=== PATIENT | female | born 1945 | race Caucasian/White ===

== ENCOUNTER 2020-07-14 14:54 | Outpatient (REF) | payer MEDICARE, SELFPAY ==
[2020-07-14 16:21] LABS: Alanine Aminotransferase 19 U/L (0-31); Albumin Level 4.2 g/dL (3.5-5.0); Alkaline Phosphatase 161 U/L (39-117); Aspartate Amino Transferase 23 U/L (5-31); Bilirubin Direct 0.2 mg/dL (0.0-0.5); Bilirubin Total 0.5 mg/dL (0.0-1.0); Total Protein 7.3 g/dL (6.5-8.0)
== END 2020-07-14 14:55 | disposition home or self-care (01) ==
LOC: HO.LAB 14:54
PROVIDERS: Visit Provider Internal Medicine Gastroenterology
DX: R79.89 Other specified abnormal findings of blood chemistry (principal)
CPT/HCPCS: 80076

== ENCOUNTER 2020-09-03 13:26 | Outpatient (REF) | payer MEDICARE, SELFPAY ==
--- NOTE | 2020-09-03 13:34 | XR_ITS ---
EXAMINATION: XR CHEST CLINICAL INFORMATION: Chest pain COMPARISON: Chest radiographs 07/16/2019, 12/02/2016 TECHNIQUE: 2 views of the chest were obtained. FINDINGS: There is prior median sternotomy with mediastinal clips and sternotomy wires. Bipolar pacemaker is present with atrial and ventricular leads. The heart is normal in size. The vascularity is normal. The lungs are clear. There is no pneumothorax, airspace consolidation, groundglass opacity, or effusion. The hilar and mediastinal contours are unremarkable. There are degenerative changes thoracic spine. No visible acute bony abnormality. XR/XR chest 2V IMPRESSION: Unremarkable examination.
== END 2020-09-03 13:27 | disposition home or self-care (01) ==
LOC: HO.XRAY 13:26
PROVIDERS: Visit Provider Internal Medicine
DX: R07.89 Other chest pain (principal)
CPT/HCPCS: 71046

== ENCOUNTER 2020-10-30 10:20 | Outpatient (REF) | payer MEDICARE, SELFPAY ==
--- NOTE | ~2020-10-30 | US_ITS ---
EXAMINATION: US ABDOMEN COMPLETE CLINICAL INFORMATION: Elevated LFTs. COMPARISON: Ultrasound abdomen complete 12/18/2018 and 11/24/2017. TECHNIQUE: Real-time imaging of the abdominal viscera. FINDINGS: PANCREAS: Normal. ABDOMINAL AORTA: There is evidence of atherosclerotic disease. The proximal, mid, and distal segments are normal in caliber. INFERIOR VENA CAVA: Visualized portions are normal. LIVER: The liver is normal in size. The liver contour is normal. Parenchymal echogenicity is normal. No focal hepatic lesion. There is mild intrahepatic biliary duct dilatation. GALLBLADDER: Surgically absent. COMMON BILE DUCT: Slightly dilated measuring 0.8 cm in diameter. RIGHT KIDNEY: There is a 2.3 x 1.3 x 1.5 cm cyst in the upper pole. There is question of a 1.2 x 1.1 x 1.7 cm cyst in the midpole versus prominent pyramid. No hydronephrosis or renal calculi. The kidney measures 10.8 cm in maximum dimension. LEFT KIDNEY: There is a 0.8 x 0.4 x 0.8 cm cyst in the midpole. No hydronephrosis or renal calculi. The kidney measures 9.6 cm in maximum dimension. SPLEEN: Normal. The spleen measures 7.6 cm in maximum dimension. FREE FLUID: None. US/US abdomen complete IMPRESSION: Mild intra and extrahepatic biliary duct dilatation similar to previous exam. This can be a normal finding postcholecystectomy. Bilateral renal cysts. Atherosclerotic disease.
== END 2020-10-30 10:21 | disposition home or self-care (01) ==
LOC: HO.US 10:20
PROVIDERS: PCP Internal Medicine Gastroenterology; Visit Provider Internal Medicine Gastroenterology
DX: R94.5 Abnormal results of liver function studies (principal)
CPT/HCPCS: 76700

== ENCOUNTER 2021-01-21 16:50 | Outpatient (REF) | payer MEDICARE, SELFPAY ==
[2021-01-21 18:29] LABS: Alanine Aminotransferase 32 U/L (0-31); Albumin Level 4.1 g/dL (3.5-5.0); Alkaline Phosphatase 285 U/L (39-117); Aspartate Amino Transferase 29 U/L (5-31); Bilirubin Direct 0.2 mg/dL (0.0-0.5); Bilirubin Total 0.5 mg/dL (0.0-1.0); Total Protein 7.4 g/dL (6.5-8.0)
[2021-01-21 18:42] LABS: Gamma Glutamyl Transpeptidase 444 U/L (7-33)
== END 2021-01-21 16:51 | disposition home or self-care (01) ==
LOC: HO.LAB 16:50
PROVIDERS: Absent Provider Internal Medicine Gastroenterology; PCP Internal Medicine; Visit Provider Internal Medicine
DX: R94.5 Abnormal results of liver function studies (principal); R94.6 Abnormal results of thyroid function studies
CPT/HCPCS: 36415; 80076; 82977; 84439; 84443

== ENCOUNTER 2021-03-27 11:50 | Outpatient (REF) | payer MEDICARE, SELFPAY ==
--- NOTE | ~2021-03-27 | MM_ITS ---
EXAMINATION: MM SCREENING DIGITAL BREAST TOMOSYNTHESIS, BILATERAL CLINICAL INFORMATION: Screening. Asymptomatic. The lifetime risk of breast cancer based on the Tyrer-Cuzick Model is 2%. COMPARISON: Mammography: 03/10/2020, 6 03/05/2019, 09/22/2016 TECHNIQUE: Digital breast tomosynthesis is performed in both the craniocaudal and mediolateral oblique views along with computer-aided detection (CAD). Synthesized 2D images are generated from the tomosynthesis. Additional left MLO view is provided. FINDINGS: The breasts are heterogeneously dense, which may obscure small masses (ACR BI-RADS breast composition Category c). There is no developing density or interval mass or architectural abnormality. Some fine calcifications are again seen central and outer breasts, greater in number on right. Calcifications show no significant change since 2017. There is pacemaker generator partly overlying posterior upper left axilla. MM/MM tomosynthesis screening BI IMPRESSION: No significant changes from prior exams. ASSESSMENT: BI-RADS 2: Benign RECOMMENDATION: Routine annual mammography screening. This patient's information was entered into a reminder system with a target due date for their next mammogram.
== END 2021-03-27 11:51 | disposition home or self-care (01) ==
LOC: HO.MAMMO 11:50
PROVIDERS: PCP Internal Medicine; Visit Provider Internal Medicine
DX: Z12.31 Encounter for screening mammogram for malignant neoplasm of breast (principal)
CPT/HCPCS: 77063; 77067

== ENCOUNTER 2022-01-07 11:27 | Outpatient (REF) | payer MEDICARE, SELFPAY ==
--- NOTE | ~2022-01-07 | US_ITS ---
EXAMINATION: US ABDOMEN COMPLETE CLINICAL INFORMATION: Abnormal hepatic function tests. Abdominal bloating. COMPARISON: Ultrasound abdomen complete 10/30/2020 and 12/18/2018. TECHNIQUE: Real-time imaging of the abdominal viscera. FINDINGS: PANCREAS: Normal. ABDOMINAL AORTA: Normal in caliber. Atherosclerotic disease however is noted. INFERIOR VENA CAVA: Visualized portions are normal. LIVER: Normal. The liver is normal in size. The liver contour is normal. Parenchymal echogenicity is normal. No focal hepatic lesion. There is no intrahepatic biliary duct dilatation seen. GALLBLADDER: Surgically absent. COMMON BILE DUCT: Dilated in caliber measuring 1.4 cm in diameter. No evidence of any choledocholithiasis. Increased in size by 0.6 cm since the prior study dated 10/30/2020. RIGHT KIDNEY: Septated, complicated cyst is noted at the mid pole, measures 1.4 x 1.4 x 1.3 cm, appears similar to prior study. No hydronephrosis or renal calculi. The kidney measures 11.4 cm in maximum dimension. LEFT KIDNEY: 0.8 x 0.7 x 0.8 cm unilocular simple appearing cyst is noted at the lateral cortex near the mid pole, unchanged No hydronephrosis or renal calculi. The kidney measures 11.2 cm in maximum dimension. SPLEEN: Normal. The spleen measures 9.0 cm in maximum dimension. FREE FLUID: None. US/US abdomen complete IMPRESSION: 1. The common bile duct is dilated, measures 1.4 cm without evidence of any choledocholithiasis, indeterminate etiology, shows interval increase in size by 0.6 cm since the most recent prior study dated 10/30/2020. No evidence of any intrahepatic biliary ductal dilatation present. The gallbladder is surgically absent. Follow-up MRCP may be considered for further clarification, if clinically appropriate.
== END 2022-01-07 11:28 | disposition home or self-care (01) ==
LOC: HO.HMGCX 11:27
PROVIDERS: PCP Internal Medicine; Visit Provider Internal Medicine
DX: R94.5 Abnormal results of liver function studies (principal); R14.0 Abdominal distension (gaseous)
CPT/HCPCS: 76700

== ENCOUNTER 2022-05-22 09:36 | Outpatient (REF) | payer MEDICARE, SELFPAY ==
[2022-05-22 09:56] LABS: MANUAL DIFF FLAG NO
[2022-05-22 10:25] LABS: Basophils Percent Auto 0.5 % (0-2); Eosinophils Absolute Auto 0.3 X10*3/uL (0.0-0.4); Eosinophils Percent Auto 4.9 % (0-4); Hematocrit 38.3 % (37.0-47.0); Hemoglobin 12.2 g/dl (12.0-16.0); Imm Gran Abs Auto 0.01 X10*3/uL (0.00-0.03); Imm Gran Pct Auto 0.2 % (0.0-0.4); Lymphocytes Absolute Auto 1.7 X10*3/uL (1.2-4.9); Lymphocytes Percent Auto 29.1 % (20-40); Mean Corpuscular HGB Conc 31.9 g/dl (31.0-35.0); Mean Corpuscular Hemoglobin 28.2 pg (27.0-33.0); Mean Corpuscular Volume 88.5 fL (80.0-98.0); Monocytes Absolute Auto 0.6 X10*3/uL (0.1-1.2); Monocytes Percent Auto 11.1 % (2-11); Neutrophils Absolute Auto 3.1 x10*3/uL (2.0-8.3); Neutrophils Percent Auto 54.2 % (45-73); Platelet Count 242 X10*3/uL (160-400); Red Blood Count 4.33 X10*6/uL (4.20-5.50); Red Cell Distribution Width 13.3 % (11.0-16.0); White Blood Count 5.7 X10*3/uL (4.8-10.8)
[2022-05-22 10:36] LABS: Prothrombin Time 11.6 SEC (10.0-13.1)
[2022-05-22 11:19] LABS: Alanine Aminotransferase 37 U/L (0-31); Alkaline Phosphatase 229 U/L (39-117); Aspartate Amino Transferase 30 U/L (5-31); Bilirubin Direct 0.2 mg/dL (0.0-0.5); Bilirubin Total 0.4 mg/dL (0.0-1.0); Total Protein 7.2 g/dL (6.5-8.0)
[2022-05-22 11:50] LABS: Gamma Glutamyl Transpeptidase 292 U/L (7-33)
[2022-05-27 11:41] LABS: Alk.Phos Iso. Macrohepatic 20 % (<=0); Alk.Phos Isoenzymes Bone 26 % (28-66); Alk.Phos Isoenzymes Intest 7 % (1-24); Alk.Phos Isoenzymes Liver 47 % (25-69); Alk.Phos Isoenzymes Placental 0 % (<=0); Alk.Phos Isoenzymes Total 205 U/L (37-153)
== END 2022-05-22 09:37 | disposition home or self-care (01) ==
LOC: HO.LAB 09:36
PROVIDERS: PCP Internal Medicine; Referring Provider Internal Medicine; Visit Provider Internal Medicine Gastroenterology
DX: R79.89 Other specified abnormal findings of blood chemistry (principal)
CPT/HCPCS: 36415; 80076; 82977; 84080; 85025; 85610

== ENCOUNTER 2022-07-28 13:48 | Outpatient (REF) | payer MEDICARE, SELFPAY ==
--- NOTE | ~2022-07-28 | MM_ITS ---
EXAMINATION: MM SCREENING DIGITAL BREAST TOMOSYNTHESIS, BILATERAL CLINICAL INFORMATION: Screening. Asymptomatic. COMPARISON: Mammography: 03/27/2021, 03/10/2020, 03/05/2019 TECHNIQUE: Digital breast tomosynthesis is performed in both the craniocaudal and mediolateral oblique views along with computer-aided detection (CAD). Synthesized 2D images are generated from the tomosynthesis. FINDINGS: The breasts are heterogeneously dense, which may obscure small masses (ACR BI-RADS breast composition Category c). Parenchymal pattern is similar to prior exams and there is no developing density or interval mass or architectural abnormality. There are fine calcifications predominantly central and outer breasts similar to prior studies. No interval abnormal calcifications. Pacemaker generator overlies and partly obscures upper posterior left axilla on MLO view. The skin contours are smooth. There are no significant changes. MM/MM tomosynthesis screening BI IMPRESSION: No mammographic evidence of malignancy. ASSESSMENT: BI-RADS 2: Benign RECOMMENDATION: Routine annual mammography screening. This patient's information was entered into a reminder system with a target due date for their next mammogram.
== END 2022-07-28 13:49 | disposition home or self-care (01) ==
LOC: HO.MAMMO 13:48
PROVIDERS: PCP Internal Medicine; Visit Provider Internal Medicine
DX: Z12.31 Encounter for screening mammogram for malignant neoplasm of breast (principal)
CPT/HCPCS: 77063; 77067

== ENCOUNTER 2022-08-19 12:49 | Outpatient (REF) | payer MEDICARE, SELFPAY ==
--- NOTE | ~2022-08-19 | MR_ITS ---
EXAMINATION: MR ABDOMEN WITHOUT AND WITH CONTRAST CLINICAL INFORMATION: Abnormal alkaline phosphatase COMPARISON: Previous abdominal ultrasounds most recent December 2021 TECHNIQUE: MR abdomen was performed without and with use of 6.5 mL intravenous gadolinium gadolinium contrast. Postcontrast images are performed in multiphase dynamic sequences. Imaging was performed in 3 planes. Exam is limited due to respiratory motion artifact. FINDINGS: LUNG BASES: The visualized lung bases are unremarkable. LIVER, GALLBLADDER, AND BILIARY TREE: The liver is normal in size, smooth in contour, and normal in signal. No focal hepatic lesion. There is mild intra and extrahepatic biliary duct dilatation. The common bile duct measures 1.3 to 1.4 cm. The gallbladder has been removed. PANCREAS: Pancreas is normal. The main pancreatic duct does not appear dilated. SPLEEN: Normal. ADRENAL GLANDS: Normal. KIDNEYS AND URETERS: There are multiple bilateral small renal cysts. There is a probable right extrarenal pelvis. Kidneys are otherwise normal. No imaging follow-up. GASTROINTESTINAL TRACT: Mild diverticulosis of the colon. No bowel obstruction. No ascites or fluid collection. ABDOMINAL WALL: No significant hernia is appreciated. LYMPH NODES: No lymphadenopathy. VASCULAR: Unremarkable. OSSEOUS STRUCTURES: Marrow signal is normal. Degenerative changes of the spine. Median sternotomy. MR/MR abdomen wo/w con IMPRESSION: Mild intra and extra hepatic biliary duct dilatation. Common bile duct measures 1.3 to 1.4 cm. Bilateral renal cysts. Diverticulosis of the colon.
== END 2022-08-19 12:50 | disposition home or self-care (01) ==
LOC: HO.MRI 12:49
PROVIDERS: Visit Provider Internal Medicine Gastroenterology
DX: R74.8 Abnormal levels of other serum enzymes (principal)
CPT/HCPCS: 74183; A9585

== ENCOUNTER 2022-11-22 14:45 | Outpatient (REF) | payer MEDICARE, SELFPAY ==
[2022-11-22 15:10] LABS: INTERNATIONAL NORM RATIO 1.1 (0.9-1.1); Prothrombin Time 12.1 SEC (10.0-13.1)
[2022-11-22 15:42] LABS: Alanine Aminotransferase 24 U/L (0-31); Albumin Level 4.1 g/dL (3.5-5.0); Alkaline Phosphatase 169 U/L (39-117); Aspartate Amino Transferase 26 U/L (5-31); Bilirubin Direct < 0.2 mg/dL (0.0-0.5); Bilirubin Total 0.5 mg/dL (0.0-1.0); Gamma Glutamyl Transpeptidase 194 U/L (7-33); Total Protein 7.1 g/dL (6.5-8.0)
[2022-11-29 23:59] LABS: FIB-ALT 21 U/L (6-29); FIB-Alpha-2-Macroglobulin 149 mg/dL (106-279); FIB-Apolipoprotein A1 190 mg/dL (101-198); FIB-GGT 153 U/L (3-65); FIB-Haptoglobin 99 mg/dL (43-212); FIB-Total Bilirubin 0.4 mg/dL (0.2-1.2); Liver Fibrosis Score 0.25; Liver Fibrosis Stage F0-F1; Nec Inflam Act Grade A0; Nec Inflam Act Score 0.08
== END 2022-11-22 14:46 | disposition home or self-care (01) ==
LOC: HO.LAB 14:45
PROVIDERS: PCP Internal Medicine; Visit Provider Internal Medicine Gastroenterology
DX: R74.8 Abnormal levels of other serum enzymes (principal); R79.89 Other specified abnormal findings of blood chemistry
CPT/HCPCS: 36415; 80076; 81596; 82977; 85610

== ENCOUNTER 2023-03-08 16:07 | Outpatient (REF) | payer MEDICARE, SELFPAY ==
--- NOTE | ~2023-03-08 | XR_ITS ---
EXAMINATION: XR KNEE, RIGHT CLINICAL INFORMATION: Acute pain of right knee COMPARISON: X-rays of the right knee September 2018 TECHNIQUE: Four views of the right knee. FINDINGS: Patellofemoral compartment: Small marginal osteophytes without joint space narrowing indicative of mild osteoarthritis unchanged. Remaining bone and joints are unremarkable no effusion. Surgical clip noted within the soft tissues medial to the knee unchanged compared to prior. XR/XR knee RT 4V IMPRESSION: Mild osteoarthritis of the right knee unchanged.
== END 2023-03-08 16:08 | disposition home or self-care (01) ==
LOC: HO.XRAY 16:07
PROVIDERS: PCP Internal Medicine; Visit Provider Internal Medicine
DX: M25.561 Pain in right knee (principal)
CPT/HCPCS: 73564

== ENCOUNTER 2023-08-03 13:52 | Outpatient (REF) | payer MEDICARE, SELFPAY | END 2023-08-03 13:53 | disposition home or self-care (01) | LOC: HO.MAMMO 13:52 | PROVIDERS: PCP Internal Medicine; Visit Provider Internal Medicine | DX: Z12.31 Encounter for screening mammogram for malignant neoplasm of breast (principal) | CPT/HCPCS: 77063; 77067 ==

== ENCOUNTER → 2023-08-03 14:00 | Outpatient (BNV) | payer MEDICARE, SELFPAY | PROVIDERS: PCP Internal Medicine; Visit Provider Radiology Diagnostic Radiology | DX: Z12.31 Encounter for screening mammogram for malignant neoplasm of breast (principal) | CPT/HCPCS: 77063; 77067 ==

== ENCOUNTER 2023-12-23 10:47 | Outpatient (REF) | payer MEDICARE, SELFPAY ==
--- NOTE | ~2023-12-23 | US_ITS ---
EXAMINATION: US ABDOMEN COMPLETE CLINICAL INFORMATION: Elevated LFTs. COMPARISON: MRI abdomen 08/19/2022, abdominal ultrasound 01/07/2022. TECHNIQUE: Real-time imaging of the abdominal viscera. FINDINGS: PANCREAS: Normal. ABDOMINAL AORTA: The proximal, mid, and distal segments are normal in caliber. INFERIOR VENA CAVA: Visualized portions are normal. LIVER: Normal. The liver is normal in size. The liver contour is normal. There is diffuse increased liver parenchymal echogenicity, consistent with hepatic steatosis. No focal hepatic lesion. There is no intrahepatic biliary duct dilatation seen. GALLBLADDER: Cholecystectomy. COMMON BILE DUCT: 1.4 cm in diameter which may be compensatory for cholecystectomy. This is similar to prior MRI abdomen. RIGHT KIDNEY: Normal. No hydronephrosis. No renal calculi or focal parenchymal lesions. The kidney measures 10.0 cm in maximum dimension. LEFT KIDNEY: Normal. No hydronephrosis. No renal calculi or focal parenchymal lesions. The kidney measures 10.4 cm in maximum dimension. SPLEEN: Normal. The spleen measures 8.9 cm in maximum dimension. FREE FLUID: None. US/US abdomen complete IMPRESSION: Stable dilated common bile duct without intrahepatic biliary ductal dilatation.
== END 2023-12-23 10:48 | disposition home or self-care (01) ==
LOC: HO.US 10:47
PROVIDERS: PCP Internal Medicine; Visit Provider Internal Medicine Gastroenterology
DX: R79.89 Other specified abnormal findings of blood chemistry (principal)
CPT/HCPCS: 76700

== ENCOUNTER 2024-05-17 14:41 | Outpatient (REF) | payer MEDICARE, SELFPAY ==
--- NOTE | ~2024-05-17 | US_ITS ---
EXAMINATION: US TRIPLEX LOWER EXTREMITY, LEFT CLINICAL INFORMATION: Left leg pain COMPARISON: None available. TECHNIQUE: Color-flow triplex imaging with spectral analysis and compression Doppler were performed on the left lower extremity. FINDINGS: Respiratory variation, normal compression and augmented flow are noted throughout the left lower extremity. The visualized common femoral vein, superficial femoral vein, profunda femoral vein, popliteal vein and midcalf peroneal and posterior tibial venous segments show no evidence of deep venous thrombosis. US/US venous duplex LE LT IMPRESSION: No evidence of deep venous thrombosis involving the left lower extremity. Electronically signed by: Yaa Benedict MD 05/17/2024 03:53 PM EDT
== END 2024-05-17 14:42 | disposition home or self-care (01) ==
LOC: HO.US 14:41
PROVIDERS: PCP Internal Medicine; Visit Provider Internal Medicine
DX: M79.605 Pain in left leg (principal)
CPT/HCPCS: 93971

== ENCOUNTER 2024-05-26 12:37 | Emergency (ER) | payer MEDICARE, SELFPAY ==
--- NOTE | ~2024-05-26 | CT_ITS ---
EXAMINATION: CT HEAD WITHOUT CONTRAST CLINICAL INFORMATION: Syncope and dizziness. COMPARISON: None. TECHNIQUE: Contiguous axial imaging was performed from the skullbase to vertex without intravenous administration of contrast. This CT examination was performed using dose optimization techniques as appropriate, variously including the following: *Automated exposure control *Adjustment of mA and/or kV according to patient size (this includes techniques or standardized protocols for targeted exams where dose is matched to indication/reason for exam; i.e. extremities or head) *Use of iterative reconstruction technique DLP: 549 mGy-cm. FINDINGS: There is no evidence of acute intracranial hemorrhage or territorial infarction. No abnormal mass effect or midline shift is seen. No extra-axial fluid collections are identified. Mild to moderate chronic white matter microangiopathy changes are visible. Moderate diffuse brain parenchymal volume loss noted with commensurate ex vacuo prominence of the ventricles. The soft tissues are normal. Mild ethmoid sinus mucosal thickening visible. The mastoid air cells are well aerated. There are severe degenerative changes in the right temporomandibular joint. CT/CT head/brain wo IV con IMPRESSION: No acute intracranial hemorrhage or territorial infarction. 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 Electronically signed by: James Tena MD 05/26/2024 01:51 PM EDT
--- NOTE | ~2024-05-26 | XR_ITS ---
EXAMINATION: XR CHEST CLINICAL INFORMATION: Near syncope COMPARISON: X-ray 09/03/2020 TECHNIQUE: 2 views of the chest were obtained. FINDINGS: Left-sided pacemaker with leads extending to the right atrium and right ventricle. Stable cardiac and mediastinal silhouette. Sternotomy wires. The superior most sternotomy wire is fractured. Lungs are symmetrically expanded. No focal consolidation, effusion, edema or pneumothorax. Thoracic spine degeneration. XR/XR chest 2V IMPRESSION: No evidence of acute process. Electronically signed by: Yuri Gao MD 05/26/2024 03:35 PM EDT
[2024-05-26 12:58] VITALS: BP 172/71; PULSE 67; RESP 16; TEMP 36; O2SAT 96; BMI 29.7
--- NOTE | 2024-05-26 13:00 | ED.GENADULT ---
HPI - General Adult General Chief complaint: General Medical Stated complaint: Episode when driving Time Seen by Provider: 05/26/24 17:13 Source: patient and RN notes reviewed Mode of arrival: ambulatory Limitations: no limitations History of Present Illness ED Provider: Jonna HPI narrative: 79F presents with chief complaint of I almost fainted She states she was driving earlier today when she had an episode of feeling unfocused and shakey . She has difficulty describing the episode at this time, but states it does not feel like vertigo she had previous. Denies chest pain, abdominal pain, or headache. Admits to mild dysnpea. She has had mild episodes similar to the first since that time, but none have been as severe. Past medical history includes pacemaker since 2018, anxiety, triple bypass surgery and bradycardia Patient reports that the episode that she described lasted for about 4 seconds and she has been asymptomatic since then Related Data Allergies Allergy/AdvReac Type Severity Reaction Status Date / Time aspirin [ASPIRIN] Allergy Unknown UNKNOWN Verified 05/26/24 13:04 latex [LATEX] Allergy Unknown BLISTERS Verified 05/26/24 13:04 Penicillins [PENICILLINS] Allergy Unknown ITCHING Verified 05/26/24 13:04 Sulfa (Sulfonamide Allergy Unknown SWELLING Verified 05/26/24 13:04 Antibiotics) [SULFA(SULFONAMIDE ANTIBIOTICS)] Aspirin Allergy Unknown Swelling Uncoded 05/26/24 12:57 From KEFLEX Allergy Unknown SWELLING Uncoded 05/26/24 12:57 From NOVOCAIN Allergy Unknown UNKNOWN Uncoded 05/26/24 12:57 Keflex Allergy Unknown Swelling Uncoded 05/26/24 12:57 Penicillin Allergy Unknown Swelling Uncoded 05/26/24 12:57 Sulfa Allergy Unknown Swelling Uncoded 05/26/24 12:57 Review of Systems Constitutional: Constitutional: Denies headache(s) and Denies weakness Eyes: Eyes: Denies blind spots, Denies blurry vision, Reports change in vision, Reports other visual disturbances and Denies tunnel vision ENT: Denies headache(s) Cardiovascular: Cardiovascular: Denies chest pain, Reports palpitations and Reports dyspnea Respiratory: Respiratory: Reports dyspnea Musculoskeletal: Musculoskeletal: Denies muscle weakness Neurologic: Denies headache(s) and Denies weakness Endocrine: Endocrine: Reports palpitations PMFSH Social History Social History Smoked in Last 30 Days: No Use of substances other than those prescribed or required for medical reasons: No Advance Directives: No Advance Directives Information Provided: Yes Physical Exam ED Vital Signs: Vital Signs - 24 hr 05/26/24 12:58 05/26/24 16:50 05/26/24 18:11 Temperature 96.8 F Pulse Rate 67 73 63 Respiratory Rate 16 19 13 Blood Pressure 172/71 H 187/81 H 206/66 H Pulse Oximetry 96 98 98 Oxygen Delivery Method Room Air Room Air 05/26/24 18:21 05/26/24 18:27 05/26/24 19:23 Temperature 98.6 F Pulse Rate 67 62 74 Respiratory Rate 18 18 Blood Pressure 206/66 H 151/57 H 165/66 H Pulse Oximetry 98 98 Oxygen Delivery Method Room Air BMI result Body Mass Index 29.7 Const General: healthy appearing, comfortable, no acute distress, alert and awake Nutritional Appearance: well nourished Orientation/consciousness: patient oriented x3 HENMT Head: Yes normocephalic and Yes atraumatic Eyes Eyelids: Yes eyelids normal Conjunctivae: conjunctivae normal Sclerae: sclerae normal Corneas: corneas normal Pupils: pupils not ERRL and Irregular pupils on the left (Left pupil is somewhat elliptical shaped) EOM: EOMs intact bilaterally Neck Neck: Yes full ROM Resp Effort & Inspection: normal respiratory effort, able to speak in complete sentences, no audible wheezes and not labored Auscultation: clear to auscultation bilaterally Cardio Rate: regular rate Rhythm: regular rhythm Skin General skin exam: elasticity normal Neuro General: patient oriented x3 Cranial nerves: Yes CN's II-XII intact bilaterally, No Equal, round and reactive pupils present and Yes Bilaterally intact EOM present Cognition (Neuro): normal cognition Extrem Other: Moving all extremities well without any obvious deformities Course Course Course Narrative: RME performed by Dulce Santillan PA-C. Patient is an 79 year old assigned female at presenting to the emergency department after an episode of near syncope. Patient states that she was driving and felt as though she was going to pass out, so she pulled over and thought to come here. Detailed physical exam and review of systems are deferred to the estate planning paralegal. EKG, labs, imaging, and swabs ordered. Patient placed back in the waiting room pending room availability and results. Medications Administered Discontinued Medications Generic Name Dose Route Start Last Admin Trade Name Freq PRN Reason Stop Dose Admin Labetalol HCl 10 mg 09/07/24 18:16 05/26/24 18:21 Labetalol Hcl 100 Mg/20 Ml Vial IVPUSH 05/26/24 18:17 10 mg ONCE ONE Administration Medical Decision Making Medical Decision Making [facility] Narrative: 79-year-old female with past medical history as documented above presents for evaluation of what sounds like a near syncopal episode. The patient reports that she was driving in describes ?tunnel vision and feeling like she may pass out. This was a brief episode lasting a few seconds. She has been asymptomatic for over 6 hours since then. Her workup in the ER is largely unremarkable. Her physical exam does show an abnormal left pupil, however the patient states that this is chronic and due to surgery that she has had in the past. Patient's CT scan shows no acute findings. Her labs without any concerning abnormalities. EKG shows a sinus rhythm with a rate of 63 beats minute. No acute ischemic changes. Differential Diagnosis Differential Diagnoses: The differential diagnosis associated with the presentation includes Near-syncope Syncope CVA less likely Anxiety Arrhythmia Admission/Observation Consideration of admission/observation: Escalation of care including admission/observation considered Consider admission for near syncopal episode, however the patient's workup was largely unremarkable and she has been asymptomatic for 6 hours Lab Data [facility] Lab Attestation statement: I reviewed the patient's lab results. 05/26/24 13:39 05/26/24 13:39 Labs: Lab Results 05/26/24 Range/Units 13:39 WBC 5.1 (4.8-10.8) X10*3/uL RBC 4.55 (4.20-5.50) X10*6/uL Hgb 13.3 (12.0-16.0) g/dl Hct 40.7 (37.0-47.0) % MCV 89.5 (80.0-98.0) fL MCH 29.2 (27.0-33.0) pg MCHC 32.7 (31.0-35.0) g/dl RDW 13.1 (11.0-16.0) % Plt Count 215 (160-400) X10*3/uL MPV 8.7 L (9.4-12.3) fL Immature Gran % (Auto) 0.4 (0.0-0.4) % Neut % (Auto) 60.2 (45-73) % Lymph % (Auto) 24.9 (20-40) % [place]olls % (Auto) 9.9 (2-11) % Eos % (Auto) 4.0 (0-4) % Baso % (Auto) 0.6 (0-2) % Lymph # (Auto) 1.3 (1.2-4.9) X10*3/uL [place] # (Auto) 0.5 (0.1-1.2) X10*3/uL Eos # (Auto) 0.2 (0.0-0.4) X10*3/uL Baso # (Auto) 0.0 (0.0-0.2) X10*3/uL Abs Immat Gran (auto) 0.02 (0.00-0.03) X10*3/uL Absolute Neuts (auto) 3.1 (2.0-8.3) x10*3/uL Absolute Nucleated RBC 0.000 (0.0-0.012) X10*3/uL Nucleated RBC % (auto) 0.0 (0.0-0.2) /100WBC PT 11.9 (11.1-13.3) SEC INR 1.0 (0.9-1.1) APTT 40.1 H (26.0-36.8) SEC Sodium 138 (135-145) mmol/L Potassium 3.9 (3.3-5.1) mmol/L Chloride 103 (96-108) mmol/L Carbon Dioxide 28 (22-29) mmol/L Anion Gap 11 L (12-20) BUN 13 (9-16) mg/dL Creatinine 0.86 (0.5-1.4) mg/dL Estim Creat Clear Calc 42.9 Estimated GFR > 60 Random Glucose 92 (60-115) mg/dL Calcium 9.3 (8.4-10.2) mg/dL Magnesium 2.0 (1.6-2.6) mg/dL Total Bilirubin 0.6 (0.0-1.0) mg/dL AST 25 (5-31) U/L ALT 25 (0-31) U/L Alkaline Phosphatase 208 H (39-117) U/L Troponin I High Sens < 2.7 (<3.5-17.0) ng/L Total Protein 7.8 (6.5-8.0) g/dL Albumin 4.2 (3.5-5.0) g/dL Urine Color Yellow Urine Appearance Clear Urine pH 7.0 (5.0-9.0) Ur Specific [place] 1.010 (1.005-1.025) Urine Protein Negative (Neg-Trace) mg/dL Urine Glucose (UA) Negative (Negative) mg/dL Urine Ketones Negative (Negative) mg/dL Urine Blood Negative (Negative) Urine Nitrite Negative (Negative) Ur Leukocyte Esterase Trace H (Negative) Urine RBC 0-2 (0-2) /HPF Urine WBC 0-5 (0-5) /HPF Ur Squamous Epith Cells 0-2 (0-2) /HPF Urine Bacteria None Seen (None Seen) Hyaline Casts 0-2 (0-2) /LPF Influenza Type A (PCR) NEGATIVE (Negative) Influenza Type B (PCR) NEGATIVE (Negative) RSV RNA Qual (PCR) NEGATIVE (Negative) SARS-CoV-2 RNA (RT-PCR) NEGATIVE (Negative) Independent Interpretation I performed an independent interpretation of an: EKG Radiology Impression Discussion of test interpretation with radiology: I have reviewed the radiologist's reading. Radiologist Impression: CT/CT head/brain wo IV con IMPRESSION: No acute intracranial hemorrhage or territorial infarction. 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 Electronically signed by: James Tena MD 05/26/2024 01:51 PM EDT RP FINDINGS: Left-sided pacemaker with leads extending to the right atrium and right ventricle. Stable cardiac and mediastinal silhouette. Sternotomy wires. The superior most sternotomy wire is fractured. Lungs are symmetrically expanded. No focal consolidation, effusion, edema or pneumothorax. Thoracic spine degeneration. XR/XR chest 2V IMPRESSION: No evidence of acute process. Electronically signed by: Yuri Gao MD 05/26/2024 03:35 PM EDT Tests considered The following testing was considered but not selected: Consider CT angiography of the head and neck given the patient's vague symptoms with some vague visual changes described as tunnel vision. The patient reports that she had these exams about a year and a half ago and ultimately declines CT angiography at this time. Have a very low suspicion for large vessel occlusion or aneurysm/dissection so I feel is appropriate to defer this at this time. Discharge Plan Discharge Clinical Impression: Near syncope, Hypertension Patient Disposition: Home, Self-Care Instructions: Hypertension (ED), Near Syncope (ED) Additional Instructions: Your workup in the ER today was reassuring. Your blood pressure was elevated and you were given a medication called labetalol I do recommend that you take your home medications as prescribed Follow-up with your primary doctor and return for new or worsening symptoms Interventions: ED Discharge Assessment Last Done: 05/26/24 19:23 Discharge Date/Time: 05/26/24 19:26 Print Language: Serbian
--- NOTE | 2024-05-26 13:01 | ECG_ITS ---
Test Reason : near syncope Blood Pressure : / mmHG Vent. Rate : 063 BPM Atrial Rate : 063 BPM P-R Int : 178 ms QRS Dur : 088 ms QT Int : 418 ms P-R-T Axes : 030 -04 016 degrees QTc Int : 427 ms Atrial-paced rhythm Minimal voltage criteria for LVH, may be normal variant ( [place] product ) Borderline ECG When compared with ECG of 07:20, Atrial-paced rhythm is now Present Referred By: Dulce Santillan Electronically Signed By:CAMMY GAN
[2024-05-26 13:46] LABS: MANUAL DIFF FLAG NO
[2024-05-26 13:49] LABS: Appearance Urine Clear; Color Urine Yellow; Glucose Urine UA Negative (Negative); Leukocyte Esterase Urine Trace (Negative); Nitrite Urine Negative (Negative); UMIC TRIGGER UACC YES; Urine Blood Negative (Negative); Urine Ketones Negative (Negative); Urine Protein Negative (Neg-Trace)
[2024-05-26 13:53] LABS: Prothrombin Time 11.9 SEC (11.1-13.3)
[2024-05-26 13:54] LABS: Bacteria Urine None Seen (None Seen); Hyaline Casts Urine 0-2 /LPF (0-2); RBC Urine 0-2 /HPF (0-2); Squamous Epithelial Cell Urine 0-2 /HPF (0-2); WBC Urine 0-5 /HPF (0-5)
[2024-05-26 13:55] LABS: Partial Thromboplastin Time 40.1 SEC (26.0-36.8)
[2024-05-26 13:58] LABS: Basophils Percent Auto 0.6 % (0-2); Eosinophils Absolute Auto 0.2 X10*3/uL (0.0-0.4); Hematocrit 40.7 % (37.0-47.0); Hemoglobin 13.3 g/dl (12.0-16.0); Imm Gran Abs Auto 0.02 X10*3/uL (0.00-0.03); Imm Gran Pct Auto 0.4 % (0.0-0.4); Lymphocytes Absolute Auto 1.3 X10*3/uL (1.2-4.9); Lymphocytes Percent Auto 24.9 % (20-40); Mean Corpuscular HGB Conc 32.7 g/dl (31.0-35.0); Mean Corpuscular Hemoglobin 29.2 pg (27.0-33.0); Mean Corpuscular Volume 89.5 fL (80.0-98.0); Mean Platelet Volume 8.7 fL (9.4-12.3); Monocytes Absolute Auto 0.5 X10*3/uL (0.1-1.2); Monocytes Percent Auto 9.9 % (2-11); Neutrophils Absolute Auto 3.1 x10*3/uL (2.0-8.3); Neutrophils Percent Auto 60.2 % (45-73); Platelet Count 215 X10*3/uL (160-400); Red Blood Count 4.55 X10*6/uL (4.20-5.50); Red Cell Distribution Width 13.1 % (11.0-16.0); White Blood Count 5.1 X10*3/uL (4.8-10.8)
[2024-05-26 14:21] LABS: Alanine Aminotransferase 25 U/L (0-31); Albumin Level 4.2 g/dL (3.5-5.0); Alkaline Phosphatase 208 U/L (39-117); Anion Gap 11 (12-20); Aspartate Amino Transferase 25 U/L (5-31); Bilirubin Total 0.6 mg/dL (0.0-1.0); Blood Urea Nitrogen 13 mg/dL (9-16); Calcium 9.3 mg/dL (8.4-10.2); Carbon Dioxide 28 mmol/L (22-29); Chloride 103 mmol/L (96-108); Creatinine Clr Calc Pharmacy 42.9; Estimated Glomerular Filt Rate > 60; Glucose Random 92 mg/dL (60-115); Potassium 3.9 mmol/L (3.3-5.1); Sodium 138 mmol/L (135-145); Total Protein 7.8 g/dL (6.5-8.0)
[2024-05-26 14:30] LABS: Influenza A PCR NEGATIVE (Negative); Influenza B PCR NEGATIVE (Negative); Resp Syncy Virus RNA Qual PCR NEGATIVE (Negative); SARS COV2 PCR INHOUSE NEGATIVE (Negative); Troponin-I High Sensitivity < 2.7 ng/L (<3.5-17.0)
[2024-05-26 16:50] VITALS: BP 187/81; PULSE 73; RESP 19; O2SAT 98
[2024-05-26 18:11] VITALS: BP 206/66; PULSE 63; RESP 13; O2SAT 98
[2024-05-26 18:21] VITALS: BP 206/66; PULSE 67
[2024-05-26] MEDS: Labetalol HCL 100 MG/20 ML VIAL 10 MG IVPUSH (18:21)
[2024-05-26 18:27] VITALS: BP 151/57; PULSE 62; RESP 18; O2SAT 98
[2024-05-26 19:23] VITALS: BP 165/66; PULSE 74; RESP 18; TEMP 37; O2SAT 98
== END 2024-05-26 19:26 | disposition home or self-care (01) ==
PROVIDERS: Physician Assistant Medical; Emergency Provider Emergency Medicine; PCP Internal Medicine
DX: R55 Syncope and collapse (principal); I10 Essential (primary) hypertension; Z03.818 Encounter for observation for suspected exposure to other biological agents ruled out; Z95.0 Presence of cardiac pacemaker
CPT/HCPCS: 0241U; 70450; 71046; 80053; 81001; 83735; 84484; 85025; 85610; 85730; 93005; 96374; 99284; J1920

== ENCOUNTER 2024-08-08 11:24 | Outpatient (REF) | payer MEDICARE, SELFPAY ==
--- NOTE | ~2024-08-08 | MM_ITS ---
EXAMINATION: MM SCREENING DIGITAL BREAST TOMOSYNTHESIS, BILATERAL CLINICAL INFORMATION: Screening. Asymptomatic. COMPARISON: Mammography: Comparison is made with available priors TECHNIQUE: Digital breast mammography with tomosynthesis is performed in both the craniocaudal and mediolateral oblique views along with computer-aided detection (CAD). FINDINGS: The breasts are heterogeneously dense, which may obscure small masses (ACR BI-RADS breast composition Category c). There are no significant masses, abnormal calcifications, or other abnormalities. MM/MM tomosynthesis screening BI IMPRESSION: No mammographic evidence of malignancy. ASSESSMENT: BI-RADS BI-RADS 1 - Negative RECOMMENDATION: Routine annual mammography screening. 1 year F/U This examination should not preclude the clinical evaluation of a suspicious palpable abnormality. This patient's information was entered into a reminder system with a target due date for their next mammogram. Electronically signed by: Christy Ramos DO 08/15/2024 02:51 PM JEMIMA
== END 2024-08-08 11:25 | disposition home or self-care (01) ==
LOC: HO.MAMMO 11:24
PROVIDERS: PCP Internal Medicine; Visit Provider Internal Medicine
DX: Z12.31 Encounter for screening mammogram for malignant neoplasm of breast (principal)
CPT/HCPCS: 77063; 77067

== ENCOUNTER → 2024-08-08 11:30 | Outpatient (BNV) | payer MEDICARE, SELFPAY | PROVIDERS: PCP Internal Medicine; Visit Provider Internal Medicine | DX: Z12.31 Encounter for screening mammogram for malignant neoplasm of breast (principal) | CPT/HCPCS: 77063; 77067 ==

== ENCOUNTER 2025-04-03 09:41 | Outpatient (REF) | payer MEDICARE, SELFPAY ==
--- NOTE | ~2025-04-03 | US_ITS ---
EXAMINATION: US ABDOMEN COMPLETE CLINICAL INFORMATION: Elevated liver functions.. COMPARISON: December 23, 2023. TECHNIQUE: Real-time ultrasound of the abdomen using grayscale and color Doppler technique. FINDINGS: PANCREAS: Normal peripancreatic fluid collections. ABDOMINAL AORTA: The proximal, mid, and distal segments are normal in caliber. INFERIOR VENA CAVA: Visualized portions are normal. LIVER: Liver measures 13 cm. Nodular surface. Coarse echotexture. No gross solid or cystic lesion. No gross intrahepatic biliary ductal dilatation. GALLBLADDER: Absent/cholecystectomy. COMMON BILE DUCT: 1.8 cm.. RIGHT KIDNEY: 11 cm. Normal echotexture. Normal renal cortical thickness. No hydronephrosis. No gross solid or cystic lesion detected by the technologist. . LEFT KIDNEY: 11 cm. Normal echotexture. Normal renal cortical thickness. No hydronephrosis. 1 cm anechoic lesion in the midportion/lower pole junction without septations.. SPLEEN: 9 cm. No focal lesion.. FREE FLUID: None. US/US abdomen complete IMPRESSION: 1.8 cm dilated common bile duct. Stricture and/or tumor infiltration at the junction with the duodenum cannot be excluded. 1 cm cyst, left kidney. Hepatocellular disease. Cirrhosis cannot be excluded. No ascites. No hydronephrosis. Electronically signed by: Charanjit Oshea MD 04/03/2025 10:30 AM EDT
--- OUTSIDE RECORDS SUMMARY | 2025-04-03 10:17 | XMS_ITS | Patient Health Record ---
Author Organization [facility] Address [address] [place] [address] Care Team Providers Care Features Reporter Name Role Phone Rodrigo Calixto MD Primary Care Provider Unavaila ble Black, Monse Unavailable [phone] Allergies Allergen (clinical drug ingredient) Drug/Non Drug Allergy documented on EMR Reaction Allergy Type Onset Date Status Information temporarily unavailable Ceclor swelling Drug Allergy Active Information temporarily unavailable Tatianna Type Anesthetics can't remember Drug Allergy Active Information temporarily unavailable Bactrim Unknown Drug Allergy Active Information temporarily unavailable Ceftin swelling Drug Allergy Active Information temporarily unavailable Cipro Unknown Drug Allergy Active Information temporarily unavailable Keflex swelling Drug Allergy Active Information temporarily unavailable Novocain Unknown Drug Allergy Active Information temporarily unavailable sulfa can't remember Drug Allergy Active Information temporarily unavailable Penicillin itchy Drug Allergy Active Information temporarily unavailable aspirin can't remember Drug Allergy Active Information temporarily unavailable Adhesive Unknown Allergy Active Information temporarily unavailable Clindamycin Unknown Drug Allergy Active Information temporarily unavailable Latex Unknown Allergy Active Information temporarily unavailable Procaine Unknown Drug Allergy Active Information temporarily unavailable Simvastatin Unknown Drug Allergy Active Results Component Value Reference Range Notes X ray : Foot, left 3V Reviewed date:01/03/2025 07:45:19 PM Interpretation:See Examination above Performing Lab: Notes/Report: See Examination above X ray : Foot, right 3V Reviewed date:01/03/2025 07:45:29 PM Interpretation:See Examination above Performing Lab: Notes/Report: See Examination above Reason For Referral No Information Medications Medication SIG (Take, Route, Frequency, Duration) Notes Start Date End Date Status Tylenol Active Shoes . . . Medically necess paramjit to wear comfortable shoes(sneaker) at work; Duration: as needed 05/29/2015 Unknown Albuterol Active Triamcinolone Acetonide Active Rosuvastatin Calcium 10 MG 1 tablet Oral ly Once a day Active Metoprolol Succinate 25 MG 1 capsule Ora lly Once a day Active Losartan Potassium 25 MG 1 tablet Orally Once a day Active Aspirin 81 MG 1 tablet Orally Once a day Active Prolensa 0.07 % 1 drop into affected eye Ophthalmic Once a day Active Lumigan 0.01 % 1 drop into affected eye in the evening Ophthalmic Once a day Active Pilocarpine HCl 2 % 1 drop into affected eye Ophthalmic Once a day Active Vitamin D 1000 UNIT 1 capsule Orally Onc e a day; Duration: 30 day(s) Unknown Social History Tobacco Use: Social History Observation Description Date Details (start date - stop date) Never Smoker NA - NA Tobacco use other than smoking: Question Answer Notes Are you an other tobacco user? No Tobacco Control (Standard) Question Answer Notes Tobacco use: Nonsmoker Additional Findings: Tobacco non-user Current no nsmoker AUDIT-C (Standard) Question Answer Notes Did you have a drink contain ing alcohol in the past year? Yes How often did you have a dri nk containing alcohol in the past year? Declined to specify (0 point) How many drinks did you have on a typical day when you were drinking in the past year? Declined to specify (0 point) How often did you have six o r more drinks on one occasion in the past year? Declined to specify (0 point) Points 0 Interpretation Negative Problems Problem Type SNOMED Code ICD Code Onset Dates Problem Status W/U Status Risk Notes Problem Acquired hallux valgus (27377890) Hallux valgus (acquired), left foot (M20.12) Active confirmed Problem Acquired hallux valgus (45994190) Hallux valgus (acquired), right foot (M20.11) Active confirmed Vital Signs Blood pressure diastolic 70 mm Hg 01/03/2025 Height 5 ft in 01/03/2025 Blood pressure systolic 140 mm Hg 01/03/2025 Weight 147 lbs 01/03/2025 BMI 28.71 kg/m2 01/03/2025 Encounters Encounter Location Date Provider Diagnosis [facility] [address] [place] [address] 01/03/2025 Monse Black Pain in left foot M79.672 ; Pain in left ankle and joints of left foot M25.572 ; Bursitis of left foot M77.52 ; Hallux valgus (acquired), left foot M20.12 ; Pain in right foot M79.671 ; Pain in right ankle and joints of right foot M25.571 ; Bursitis of right foot M77.51 and Hallux valgus (acquired), right foot M20.11 [facility] [address] [place] [address] 10/16/2024 Monse Hull Assessments Encounter Date Diagnosis (ICD Code) Assessment Notes Treatment Notes Treatment Clinical Notes Section Notes 01/03/2025 Pain in left ankle and joints of left foot (ICD-10 - M25.572) 01/03/2025 Pain in left foot (ICD-10 - M79.672) 01/03/2025 Bursitis of left foot (ICD-10 - M77.52) 01/03/2025 Hallux valgus (acquired), left foot (ICD-10 - M20.12) 01/03/2025 Pain in right foot (ICD-10 - M79.671) 01/03/2025 Pain in right ankle and joints of right foot (ICD-10 - M25.571) 01/03/2025 Bursitis of right foot (ICD-10 - M77.51) 01/03/2025 Hallux valgus (acquired), right foot (ICD-10 - M20.11) Plan Of Treatment Pending Test Test Name Order Date X ray : Ankle, left 3V 10/28/2011 X ray : Foot, left 3V 02/22/2013 [id number] NAIL, 6 OR MORE 10/28/2011 [id number] NAIL, 6 OR MORE 12/30/2011 [id number] Plate 02/13/2015 [id number] Plate Each Additional 60097- Debride <25 sq cm 07/08/2014 11108- Debride <25 sq cm 05/11/2012 Insurance Providers Payer Name Payer Address Payer Phone Subscriber Number Group Number Insured Name Patient Relationship to Insured Coverage Start Date Coverage End Date [employer] 65 Medicare Preferred [address] [place] [address] [id number] Shelby Acuna Self - patient is the insured Medical (General) History Medical History History ICD Code kidney disease keloids corns/calluses Anemia Arthritis CAD (Cholesterol) Cataracts covid-19 Diverticulosis Glaucoma Heart disease High Blood Pressure Osteoporosis Sciatica Measles Transfusions Surgical History Surgery Date(Month/Year) cholecystectomy hysterectomy colonostomy 06/2014 bypass surgery cardiac pacemeker cataract surgery glaucoma r/l Hospitalization History Reason Date(Month/Year) Patient was admitted to [facility] for observation for heart attack. 10/2011
--- OUTSIDE RECORDS SUMMARY | 2025-04-03 10:17 | XMS_ITS | Patient Health Record ---
Author Organization [facility] Address [address] [place] [address] Care Team Providers Care Lining Presser Name Role Phone Rodrigo Calixto MD Primary Care Provider Matty Elaine Jr Unavailable Allergies Allergen (clinical drug ingredient) Drug/Non Drug Allergy documented on EMR Reaction Allergy Type Onset Date Status atorvastatin Lipitor Unknown Drug Allergy Acti ve Keflex Unknown Drug Allergy Active clindamycin Clindamycin HCl Unknown Drug Allergy Active atorvastatin Atorvastatin Calcium Unknown Drug Allergy Active Penicillin Unknown Drug Allergy Active Substance with sulfonamide structure and antibacterial mechanism of action (substance) Sulfa Antibiotics Unknown Drug Allergy Active Latex Gloves Unknown Drug Allergy Acti ve simvastatin Simvastatin Unknown Drug Allergy Act norma Reason For Referral No Information Medications Medication SIG (Take, Route, Frequency, Duration) Notes Start Date End Date Status Losartan Potassium 25 MG TAKE 1 TABLET D AILY Orally Active ProAir HFA 108 (90 Base) MCG/ACT TAKE 2 PUFFS BY MOUTH EVERY 6 HOURS NEEDED FOR WHEEZING Inhalation for 17 PRN Active Rosuvastatin Calcium 10 MG 1 tablet Oral ly Once a day for 30 day(s) Active Baby Aspirin 81 MG 1 tablet Orally Once a day Active Vitamin D 1000 UNIT 1 tablet Orally Once a day Active Metoprolol Tartrate 25 MG TAKE 1 TABLET WITH FOOD TWICE A DAY Oral three times a day Active LORazepam 0.5 MG 1 tablet at bedtime as needed Orally Once a day 05/26/2022 Active Lumigan 0.01 % Ophthalmic for 90 Days Active Pilocarpine HCl 2 % Ophthalmic for 90 Days Active Triamcinolone Acetonide Active Prolensa 0.07 % Ophthalmic for 30 Days Active Immunizations Vaccine Route Administration Date Status Comme nts Influenza Unknown 07/03/2018 Administered Influenza Unknown 06/25/2020 Administered Influenza Unknown 07/08/2021 Administered Influenza Unknown 08/11/2022 Administered Influenza Unknown 07/12/2023 Administered Social History Tobacco Use: Social History Observation Description Date Details (start date - stop date) Former Smoker NA - NA Tobacco Use/Smoking Question Answer Notes Patient is a former smoker How long has it been since you last smoked? 1-5 years Section Notes: Former smoker, drinks ocassi onal wine There is no current tobacco alcohol or substance abuse. There is no current tobacco alcohol or substance abuse. There is no current tobacco alcohol or substance abuse. There is no current tobacco alcohol or substance abuse. There is no current tobacco alcohol or substance abuse. There is no current tobacco alcohol or substance abuse. Former smoker, drinks ocassi onal wine Former smoker, drinks ocassi onal wine Former smoker, drinks ocassi onal wine Former smoker, drinks ocassi onal wine Former smoker, drinks ocassi onal wine Former smoker, drinks ocassi onal wine Former smoker, drinks ocassi onal wine Former smoker, drinks ocassi onal wine Problems Problem Type SNOMED Code ICD Code Onset Dates Problem Status W/U Status Risk Notes Problem 135721035 Colon cancer screening (Z12.11) Active confirmed Problem Bloating (39464989) Bloating (R14.0) Active confirmed Problem 406451496 Elevated liver function tests (R79.89) Active confirmed Problem 863804633 Elevated alkaline phosphatase level (R74.8) Active confirmed Problem 744805842 Abnormal alkaline phosphatase test (R74.8) Active confirmed Vital Signs Blood pressure diastolic 77 mm Hg 03/21/2025 Height 59.50 in 03/21/2025 Blood pressure systolic 111 mm Hg 03/21/2025 Weight 149 lbs 03/21/2025 BMI 29.59 kg/m2 03/21/2025 Encounters Encounter Location Date Provider Diagnosis [facility] [address] [place] [address] 03/21/2025 Matty Mccall Jr Elevated liver function tests R79.89 [facility] [address] [place] [address] 12/13/2024 Matty Mccall Jr Abnormal alkaline phosphatase test R74.8 and Bloating R14.0 [facility] [address] [place] [address] 03/18/2025 Matty Mccall Jr Assessments Encounter Date Diagnosis (ICD Code) Assessment Notes Treatment Notes Treatment Clinical Notes Section Notes 03/21/2025 Elevated liver function tests (ICD-10 - R79.89) 12/13/2024 Bloating (ICD-10 - R14.0) We discussed her symptoms today. We recommended continued monitoring of her elevated alkaline phosphatase level. She has declined liver biopsy in the past and continues to do so. We discussed treatment of bloating with simethicone. She can use this in the form of Gas-X. Follow-up will be in 1 year. 12/13/2024 Abnormal alkaline phosphatase test (ICD-10 - R74.8) ALP - blood test material was printed We discussed her symptoms today. We recommended continued monitoring of her elevated alkaline phosphatase level. She has declined liver biopsy in the past and continues to do so. We discussed treatment of bloating with simethicone. She can use this in the form of Gas-X. Follow-up will be in 1 year. Plan Of Treatment Pending Test Test Name Order Date LIVER PROFILE 11/09/2022 LIVER PROFILE 01/25/2018 LIVER PROFILE 03/21/2025 LIVER PROFILE 02/23/2018 LIVER PROFILE 06/07/2018 LIVER PROFILE 07/14/2020 LIVER PROFILE 05/21/2022 GGT 05/21/2022 GGT 11/09/2022 CBC w/o DIFF 05/21/2022 CBC w/o DIFF 11/09/2022 PROTHROMBIN TIME (PT, INR) 11/09/2022 MRI ABD W&WO CONTRAST 06/08/2022 MRI ABD W&WO CONTRAST 06/09/2022 US ABD 03/21/2025 US ABD 10/16/2020 Liver Fibrosis Pnl 03/21/2025 Liver Fibrosis Pnl 11/09/2022 Future Test Test Name Order Date COLONOSCOPY 05/17/2014 COLONOSCOPY 01/06/2019 US ABD 12/12/2023 Next Appt Details Provider Name:Matty brooks Jr, 09/23/2025 11:10:00 AM, [address], [address], [place], [address], Insurance Providers Payer Name Payer Address Payer Phone Subscriber Number Group Number Insured Name Patient Relationship to Insured Coverage Start Date Coverage End Date [facility] [address] [place], [place] [id number] CARLOS COLLINS Self - patient is the insured Medical (General) History Medical History History ICD Code hemorrhoids colonoscopy 2018, history of polyps, no followup recommended. diverticulosis ITP elevated cholesterol cyst in the kidney Hypertension Arthritis/tendinitis Surgical History Surgery Date(Month/Year) Laser eye surgery for glaucoma and catar acts 923 cardiac pacemeker 09/2017 tripple bypass 07/2017 appendectomy hysterectomy and right salpingo-oophorec denae cholecystectomy Hospitalization History Reason Date(Month/Year)
== END 2025-04-03 09:42 | disposition home or self-care (01) ==
LOC: HO.US 09:41
PROVIDERS: PCP Internal Medicine; Visit Provider Internal Medicine Gastroenterology
DX: R79.89 Other specified abnormal findings of blood chemistry (principal)
CPT/HCPCS: 76700

== ENCOUNTER → 2025-04-03 09:54 | Outpatient (BNV) | payer MEDICARE, SELFPAY | PROVIDERS: PCP Internal Medicine; Visit Provider Radiology Diagnostic Radiology | DX: N28.1 Cyst of kidney, acquired (principal) | CPT/HCPCS: 76700 ==

== ENCOUNTER → 2025-08-30 13:00 | Outpatient (BNV) | payer MEDICARE, SELFPAY | PROVIDERS: PCP Internal Medicine; Visit Provider Internal Medicine | DX: Z12.31 Encounter for screening mammogram for malignant neoplasm of breast (principal) | CPT/HCPCS: 77063; 77067 ==

== ENCOUNTER 2025-08-30 13:01 | Outpatient (REF) | payer MEDICARE, SELFPAY ==
--- OUTSIDE RECORDS SUMMARY | 2025-03-14 09:15 | XMS_ITS ---
Author Organization [facility] Address [address] [place] [address] Care Team Providers Care Boiler Installer Name Role Phone Durga WRAY, Rodrigo Primary Care Provider Tania Hull Monse Unavailable [phone] Encounters Encounter Location Date Provider Diagnosis [facility] [address] [place] [address] 03/14/2025 Monse Hull Plan Of Treatment Next Appt Details Provider Name:Monse Hull , 10/10/2025 02:45:00 PM, [address] [place], [address], Progress Notes * Shelby COLLINS MDOB:1944 (80 yo F)Acc No.[id number]:03/14/2025 Progress Note Patient: Mare PALAFOX Shelby Mirian Provider: Susana Hull DPM :1945 A ge:80 Y S ex:Female Date:03/14/2025 Address:[address], [place], [place] Pcp:Rodrigo Calixto MD Subjective: * Chief Complaints: * * Medical History: Objective: * Vitals: Assessment: Plan: * Treatment: * Images: * The named appointment provid er may or may not be the originator of this progress note, and it is not deemed complete until electronically signed by the appointment provider. Sign off status: Pending * Provider: Susana Hull DPM Date: 0 03/14/2025 Generated for Sidra sahu/Devyn/Magda on: 1 10/31/2024 06:38 PM EST
--- NOTE | ~2025-08-30 | MM_ITS ---
EXAMINATION: MM SCREENING DIGITAL BREAST TOMOSYNTHESIS, BILATERAL CLINICAL INFORMATION: Screening. Asymptomatic. COMPARISON: Mammography: Comparison is made with available priors TECHNIQUE: Digital breast mammography with tomosynthesis is performed in both the craniocaudal and mediolateral oblique views along with computer-aided detection (CAD). FINDINGS: The breasts are heterogeneously dense, which may obscure small masses. There are no significant masses, abnormal calcifications, or other abnormalities. MM/MM tomosynthesis screening BI IMPRESSION: No mammographic evidence of malignancy. ASSESSMENT: BI-RADS Category 1: Negative RECOMMENDATION: Routine annual mammography screening. 1 year F/U This examination should not preclude the clinical evaluation of a suspicious palpable abnormality. This patient's information was entered into a reminder system with a target due date for their next mammogram. Electronically signed by: Christy Ramos DO 09/03/2025 01:43 PM JEMIMA
--- OUTSIDE RECORDS SUMMARY | 2025-08-30 18:39 | XMS_ITS | Patient Health Record ---
Author Organization [facility] Address [address] [place] [id number] Care Team Providers Care Rope Maker Name Role Phone Rodrigo Calixto MD Primary Care Provider Matty Elaine Jr Unavailable Allergies Allergen (clinical drug ingredient) Drug/Non Drug Allergy documented on EMR Reaction Allergy Type Onset Date Status atorvastatin Atorvastatin Calcium Unknown Drug Allergy Active clindamycin Clindamycin HCl Unknown Drug Allergy Active Keflex Unknown Drug Allergy Active atorvastatin Lipitor Unknown Drug Allergy Acti ve simvastatin Simvastatin Unknown Drug Allergy Act norma Latex Gloves Unknown Drug Allergy Acti ve Substance with sulfonamide structure and antibacterial mechanism of action (substance) Sulfa Antibiotics Unknown Drug Allergy Active Penicillin Unknown Drug Allergy Active Results Component Value Reference Range Notes US abdomen complete Reviewed date:04/04/2025 08:45:12 AM Interpretation: Performing Lab: Notes/Report: [address] [address] Ultrasound Report Signed Patient: Carlos Lombardi MR#: [id number] : 1945 Acct:[id number] Age/Sex: 80 / F ADM Date: 04/03/25 Loc: HO.US Attending Dr: Matty Mccall MD Ordering Physician: Matty Mccall MD Date of Service: 04/03/25 Procedure(s): US abdomen complete Accession Number(s): [id number] cc: Rodrigo Calixto MD; Matty Mccall MD EXAMINATION: US ABDOMEN COMPLETE CLINICAL INFORMATION: Elevated liver functions.. COMPARISON: December 23, 2023. TECHNIQUE: Real-time ultrasound of the abdomen using grayscale and color Doppler technique. FINDINGS: PANCREAS: Normal peripancreatic fluid collections. ABDOMINAL AORTA: The proximal, mid, and distal segments are normal in caliber. INFERIOR VENA CAVA: Visualized portions are normal. LIVER: Liver measures 13 cm. Nodular surface. Coarse echotexture. No gross solid or cystic lesion. No gross intrahepatic biliary ductal dilatation. GALLBLADDER: Absent/cholecystectomy. COMMON BILE DUCT: 1.8 cm.. RIGHT KIDNEY: 11 cm. Normal echotexture. Normal renal cortical thickness. No hydronephrosis. No gross solid or cystic lesion detected by the technologist. . LEFT KIDNEY: 11 cm. Normal echotexture. Normal renal cortical thickness. No hydronephrosis. 1 cm anechoic lesion in the midportion/lower pole junction without septations.. SPLEEN: 9 cm. No focal lesion.. FREE FLUID: None. US/US abdomen complete IMPRESSION: 1.8 cm dilated common bile duct. Stricture and/or tumor infiltration at the junction with the duodenum cannot be excluded. 1 cm cyst, left kidney. Hepatocellular disease. Cirrhosis cannot be excluded. No ascites. No hydronephrosis. Electronically signed by: Charanjit Oshea MD 04/03/2025 10:30 AM EDT Dictated By: Charanjit Jarvis MD Signed By: <Electronically signed by Charanjit Barnes MD in OV> 04/03/25 1030 DD/ 0954 TD/TT: 04/03/25 1008 Data Processing Control Clerk: Reason For Referral No Information Medications Medication SIG (Take, Route, Frequency, Duration) Notes Start Date End Date Status Losartan Potassium 25 MG Tablet TAKE 1 TABLET DAILY Orally Active ProAir HFA 108 (90 Base) MCG/ACT Aerosol Solution TAKE 2 PUFFS BY MOUTH EVERY 6 HOURS NEEDED FOR WHEEZING Inhalation; Duration: 17 PRN Active Rosuvastatin Calcium 10 MG Tablet 1 tablet Orally Once a day; Duration: 30 day(s) Active Baby Aspirin 81 MG Tablet Chewable 1 tablet Orally Once a day Active Vitamin D 1000 UNIT Tablet 1 tablet Oral ly Once a day Active Metoprolol Tartrate 25 MG Tablet TAKE 1 TABLET WITH FOOD TWICE A DAY Oral three times a day Active LORazepam 0.5 MG Tablet 1 tablet at bedt jan as needed Orally Once a day 05/26/2022 Active Lumigan 0.01 % Solution Ophthalmic; Dura tion: 90 Days Active Pilocarpine HCl 2 % Solution Ophthalmic; Duration: 90 Days Active Triamcinolone Acetonide Active Prolensa 0.07 % Solution Ophthalmic; Dur ation: 30 Days Active Immunizations Vaccine Route Administration Date Status Comme nts Influenza Unknown 07/03/2018 Administered Influenza Unknown 06/25/2020 Administered Influenza Unknown 07/08/2021 Administered Influenza Unknown 08/11/2022 Administered Influenza Unknown 07/12/2023 Administered Social History Tobacco Use: Social History Observation Description Date Details (start date - stop date) Former Smoker NA - NA Social History Tobacco Use: Social Info Question Answer Notes Tobacco Use/Smoking Patient is a former smoker How long has it been since you last smoked? 1-5 years Additional Details Category Social Info Options Details Miscellaneous: Marital status: single Occupation: unemployed Section Notes: There is no current tobacco alcohol or [...] Problem Status W/U Status Risk Notes Problem Colon cancer screening (802924734) Colon cancer screening (Z12.11) Active confirmed Problem Flatulence, eructation and gas pain (036358290) Bloating (R14.0) Active confirmed Problem Elevated liver enzymes level (270388158) Elevated liver function tests (R79.89) Active confirmed Problem Alkaline phosphatase raised (692397142) Elevated alkaline phosphatase level (R74.8) Active confirmed Problem Laboratory test result abnormal (471278334) Abnormal alkaline phosphatase test (R74.8) Active confirmed Vital Signs Blood pressure diastolic 77 mm Hg 03/21/2025 Height 59.50 in 03/21/2025 Blood pressure systolic 111 mm Hg 03/21/2025 Weight 149 lbs 03/21/2025 BMI 29.59 kg/m2 03/21/2025 Encounters Encounter Location Date Provider Diagnosis [facility] [address] [place] [address] 12/13/2024 Matty Mccall Jr Abnormal alkaline phosphatase test R74.8 and Bloating R14.0 [facility] [address] [place] [address] 03/21/2025 Matty Mccall Jr Elevated liver function tests R79.89 [facility] [address] [place] [address] 03/18/2025 Matty Mccall Jr [facility] [address] [place] [address] 04/04/2025 Matty Mccall Jr Assessments Encounter Date Diagnosis (ICD Code) Assessment Notes Treatment Notes Treatment Clinical Notes Section Notes 12/13/2024 Bloating (ICD-10 - R14.0) We discussed [...] Gas-X. Follow-up will be in 1 year. 03/21/2025 Elevated liver function tests (ICD-10 - R79.89) We recommended follow-up imaging with ultrasound and repeat liver function tests in 1 month. Follow-up will be in 6 months. She will let us know if she has any recurrent symptoms. Plan Of Treatment Pending Test Test Name Order Date LIVER PROFILE 03/21/2025 LIVER PROFILE 01/25/2018 LIVER PROFILE 02/23/2018 LIVER PROFILE 06/07/2018 LIVER PROFILE 07/14/2020 LIVER PROFILE 05/21/2022 LIVER PROFILE 11/09/2022 GGT 05/21/2022 GGT 11/09/2022 CBC w/o DIFF 11/09/2022 CBC w/o DIFF 05/21/2022 PROTHROMBIN TIME (PT, INR) 11/09/2022 MRI ABD W&WO CONTRAST 06/08/2022 MRI ABD W&WO CONTRAST 06/09/2022 US ABD 10/16/2020 US ABD 03/21/2025 Liver Fibrosis Pnl 03/21/2025 Liver Fibrosis Pnl 11/09/2022 Future Test Test Name Order Date COLONOSCOPY 05/17/2014 COLONOSCOPY 01/06/2019 US ABD 12/12/2023 Next Appt Details Provider Name:Matty Hermila brooks Jr, 09/23/2025 11:00:00 AM, [address] [facility], [address], [place], [address], Insurance Providers Payer Name Payer Address Payer Phone Subscriber Number Group Number Insured Name Patient Relationship to Insured Coverage Start Date Coverage End Date [facility] [address] [place], [place] [id number] CARLOS COLLINS Self - patient is the insured Medical (General) History Medical History History ICD Code hemorrhoids colonoscopy 2018, history of polyps, no followup recommended. diverticulosis ITP elevated cholesterol Kidney cysts Hypertension Arthritis/tendinitis Surgical History Surgery Date(Month/Year) cholecystectomy hysterectomy and right salpingo-oophorec denae appendectomy Coronary artery disease with CABG x 3 Pacemaker 09/2017 Laser eye surgery for glaucoma and catar acts 923 Hospitalization History Reason Date(Month/Year)
--- OUTSIDE RECORDS SUMMARY | 2025-08-30 18:39 | XMS_ITS | Patient Health Record ---
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 Name Role Phone Rodrigo Calixto MD Primary Care Provider Unavaila ble Black, Monse Unavailable [phone] Allergies Allergen (clinical drug ingredient) Drug/Non Drug [...] Status Risk Notes Problem Acquired hallux valgus (26568074) Hallux valgus (acquired), left foot (M20.12) Active confirmed Problem Acquired hallux valgus (62567814) Hallux valgus (acquired), right foot (M20.11) Active confirmed Vital Signs Blood pressure diastolic 70 mm Hg 01/03/2025 Height 5 ft in 01/03/2025 Blood pressure systolic 140 mm Hg 01/03/2025 Weight 147 lbs 01/03/2025 BMI 28.71 kg/m2 01/03/2025 Encounters Encounter Location Date Provider Diagnosis [facility] [address] [place] [address] 01/03/2025 Monse Black Pain in left foot M79.672 ; Pain in left ankle and joints of left foot M25.572 ; Bursitis of left foot M77.52 ; Hallux valgus (acquired), left foot M20.12 ; Pain in right foot M79.671 ; Pain in right ankle and joints of right foot M25.571 ; Bursitis of right foot M77.51 and Hallux valgus (acquired), right foot M20.11 [facility] [address] [place] [address] 10/16/2024 Monse Hull Assessments Encounter Date Diagnosis [...] X ray : Foot, left 3V 02/22/2013 78939-[id number] NAIL, 6 OR MORE 10/28/2011 86304-EWNRGRX NAIL, 6 OR MORE 12/30/2011 48681-Xibygjci Plate 02/13/2015 63665-Ceibxent Plate Each Additional 25594- Debride <25 sq cm 07/08/2014 15470- Debride <25 sq cm 05/11/2012 Next Appt Details Provider Name:Monse Hull , 10/10/2025 02:45:00 PM, [address] [place], [address], Insurance Providers Payer Name Payer Address Payer Phone Subscriber Number Group Number Insured Name Patient Relationship to Insured Coverage Start Date Coverage End Date [employer] 65 Medicare Preferred [address] [place] [address] [id number] Shelby Acuna Self - patient is the insured Medical (General) History Medical History History ICD Code kidney disease keloids corns/calluses Anemia Arthritis CAD (Cholesterol) Cataracts covid-19 Diverticulosis Glaucoma Heart disease High Blood Pressure Osteoporosis Sciatica Measles Transfusions Surgical History Surgery Date(Month/Year) cholecystectomy hysterectomy colonostomy 06/2014 bypass surgery cardiac pacemeker cataract surgery glaucoma r/l Hospitalization History Reason Date(Month/Year) Patient was admitted to [facility] for observation for heart attack. 10/2011
== END 2025-08-30 13:02 | disposition home or self-care (01) ==
LOC: HO.MAMMO 13:01
PROVIDERS: PCP Internal Medicine; Visit Provider Internal Medicine
DX: Z12.31 Encounter for screening mammogram for malignant neoplasm of breast (principal)
CPT/HCPCS: 77063; 77067